=== PATIENT | male | born 1955 | race Two or more races ===

== ENCOUNTER 2019-01-04 09:56 | Emergency (ER) | payer BC, OTHER ==
[~2019-01-04] VITALS: Ht 185.4 cm; Wt 88.9 kg
[2019-01-04 10:21] LABS: Basophils # (auto) 0.1 uL; Eosinophils # (auto) 0.2 uL; Hematocrit 44.2 % (41.0-53.0); Lymphocytes # (auto) 1.6 uL; Lymphocytes % (auto) 23.4 % (10.0-50.0); Mean Corpuscular Hemoglobin 30.5 pg (28.0-32.0); Mean Corpuscular Hgb Conc. 33.9 g/dL (32.0-36.0); Mean Corpuscular Volume 89.9 fL (80.0-100.0); Monocytes # (auto) 0.4 uL; Monocytes % (auto) 6.4 % (0.0-12.0); Neutrophils # (auto) 4.6 uL; Neutrophils % (auto) 66.2 % (37.0-80.0); Nucleated Red Blood Cells % 0.1 %; Platelet Count (auto) 149 10^3/uL (140-450); Red Blood Cells 4.91 10^6/uL (4.5-5.90); Red Cell Distribution Width 14.3 % (11.8-14.3); White Blood Cell 6.9 10^3/uL (4.4-10.8)
[2019-01-04 10:36] LABS: Potassium 3.7 mmol/L (3.5-5.1)
[2019-01-04 10:47] LABS: Albumin 3.9 g/dL (3.4-5.0); BUN/Creatinine Ratio 11.8; Bilirubin, Total 0.9 mg/dL (0.2-1.0); Total Protein 7.7 g/dL (6.4-8.2)
[2019-01-04 11:46] LABS: INR 0.99 (0.9-1.15); Partial Thromboplastin Time 28.3 sec (23.64-32.05)
[2019-01-04 13:37] VITALS: BP 125/76
== END 2019-01-04 14:06 | disposition home or self-care (01) ==
LOC: ER 10:00
DX: K62.5 Hemorrhage of anus and rectum (principal); Z90.89 Acquired absence of other organs
CPT/HCPCS: 36415; 80053; 85025; 85610; 85730